=== PATIENT | female | born 1965 | race Caucasian/White ===

== ENCOUNTER 2018-02-06 13:07 | Emergency (ER) | payer BC, OTHER ==
[~2018-02-06] VITALS: Ht 175.3 cm; Wt 108.9 kg
[~2018-02-06 13:07] MED LIST: LEVO100T83 OR; LISNOPRIL PO; OMEPRAZOLE PO
[2018-02-06 14:28] LABS: Basophils # (auto) 0 uL; Basophils % (auto) 0.5 % (0.0-2.0); Eosinophils # (auto) 0.6 uL; Eosinophils % (auto) 7.8 % (0.0-7.0); Hematocrit 38.4 % (36.0-46.0); Hemoglobin 13.1 g/dL (12.2-16.2); Lymphocytes # (auto) 1.1 uL; Lymphocytes % (auto) 14.7 % (10.0-50.0); Mean Corpuscular Hemoglobin 29.7 pg (28.0-32.0); Mean Corpuscular Hgb Conc. 34.2 g/dL (32.0-36.0); Mean Corpuscular Volume 86.7 fL (80.0-100.0); Monocytes # (auto) 0.3 uL; Monocytes % (auto) 4.2 % (0.0-12.0); Neutrophils # (auto) 5.3 uL; Neutrophils % (auto) 72.8 % (37.0-80.0); Platelet Count (auto) 248 10^3/uL (140-450); Red Blood Cells 4.43 10^6/uL (4.0-5.20); White Blood Cell 7.2 10^3/uL (4.4-10.8)
[2018-02-06] MEDS ORDERED: DONNATAL 5ml ORAL Elix (BELLADONNA ALK-PHENOBARB) PO ONE (14:30)
[2018-02-06] MEDS ORDERED: LIDOCAINE VISCOUS 2% 15ML UD PO ONE (14:30)
[2018-02-06] MEDS ORDERED: ALUM & MAG HYDROX-SIMETH LIQ(MAALOX) 30 ML PO ONE (14:30)
[2018-02-06 14:43] LABS: Albumin 3.6 g/dL (3.4-5.0); Anion Gap 4 (5-15); Blood Urea Nitrogen 12 mg/dL (7-18); Calcium 8.1 mg/dL (8.5-10.1); Carbon Dioxide 28 mmol/L (21-32); Chloride 109 mmol/L (98-107); Glucose 99 mg/dL (74-106); Magnesium 2.1 mg/dL (1.6-2.6); Potassium 3.2 mmol/L (3.5-5.1); Sodium 141 mmol/L (136-145)
[2018-02-06 14:48] LABS: Alanine Aminotransferase 56 U/L (13-56); Alkaline Phosphatase 194 U/L (45-117); Aspartate Aminotransferase 124 U/L (15-37); BUN/Creatinine Ratio 15.2; GFR African American 98 mL/min; GFR Non-African American 81 mL/min; Total Protein 6.7 g/dL (6.4-8.2)
[2018-02-06 15:02] LABS: Urine Bacteria NONE SEEN /hpf (None Seen); Urine Blood Negative /uL (Negative); Urine Mucus FEW (None Seen); Urine Specific Gravity 1.026 (1.001-1.035); Urine WBC 5 /hpf (0 - 5)
[2018-02-06 16:13] VITALS: BP 145/77
== END 2018-02-06 16:14 | disposition home or self-care (01) ==
LOC: ER 13:13
DX: K29.70 Gastritis, unspecified, without bleeding (principal); K21.9 Gastro-esophageal reflux disease without esophagitis; I10 Essential (primary) hypertension; E07.9 Disorder of thyroid, unspecified
CPT/HCPCS: 36415; 74176; 76705; 80053; 81001; 83735; 84484; 85025; 93005